=== PATIENT | female | born 2000 | race Caucasian/White ===

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

== ENCOUNTER 2021-05-29 12:31 | Emergency (ER) | payer BC ==
[2021-05-29 13:18] LABS: Absolute Lymphocytes (CBC) 2.2 K/uL (0.7-4.9); Basophils % 0.5 % (0-1.3); Hematocrit 41.1 % (36.0-45.0); Lymphocytes % 42.6 % (15.3-44.8); MPV 6.8 fL (7.6-11.3); RBC Red Blood Cell Count 4.53 M/uL (3.86-4.86)
[2021-05-29 13:21] LABS: Protime INR 1.01
[2021-05-29 13:35] LABS: ALT/SGPT 20 U/L (12-78); AST/SGOT 14 U/L (15-37); Albumin 3.5 g/dL (3.4-5.0); Alkaline Phosphatase 64 U/L (45-117); BUN Blood Urea Nitrogen 9 mg/dL (7-18); Bicarbonate 24 mmol/L (21-32); Bilirubin Direct 0.2 mg/dL (0-0.2); Bilirubin Total 1.1 mg/dL (0.2-1.0); Glucose Level 91 mg/dL (74-106); Magnesium 2.1 mg/dL (1.8-2.4); NT PRO-BNP 15 pg/mL (<125); Potassium 3.8 mmol/L (3.5-5.1); Protein, Total 7.8 g/dL (6.4-8.2); Sodium Level 138 mmol/L (136-145); Troponin (Emerg Dept Use Only) < 0.02 ng/mL (0.0-0.045)
--- NOTE | 2021-05-29 13:40 | RAD REPORT ---
EXAM DESCRIPTION: RAD - Chest Single View - 05/29/2021 1:16 pm CLINICAL HISTORY: palpitation COMPARISON: August 2019 TECHNIQUE: AP portable chest image was obtained 05/29/2021 1:16 pm . FINDINGS: Lungs are clear. Heart and vasculature are normal. No measurable pleural effusion and no p neumothorax. No acute bony abnormality seen. No acute aortic findings suspected. IMPRESSION: No acute cardiopulmonary process. No significant change from comparison study.
--- NOTE | 2021-05-29 14:28 | EDPHYS ---
Physician Documentation [facility] Name: Lois Espitia Age: 20 yrs Sex: Female : 2000 Arrival Date: 05/29/2021 Time: 12:32 Bed 8 Private MD: ED Physician Jacqueline Briseno HPI: 05/29 14:02 This 20 yrs old Female presents to ER via Ambulatory with complaints of Palpitations - ma2 wpw syndrome. 14:02 The patient presents with a history of heart racing. Onset: The symptoms/episode ma2 began/occurred gradually, 2 hour(s) ago. Associated signs and symptoms: Pertinent negatives: anxiety, chest pain, cough, fever, nausea, SOB, syncope, near-syncope, unusual stressors, vertigo. Severity of symptoms: At their worst the symptoms were very mild in the emergency department the symptoms have resolved. The patient has experienced similar episodes in the past. 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 - Social history:: Smoking status: Patient denies any tobacco usage or history of. - Family history:: not pertinent. ROS: 14:02 Constitutional: Negative for fever, chills, and weight loss. ma2 14:02 All other systems are negative. Exam: 14:02 Constitutional: This is a well developed, well nourished patient who is awake, alert, ma2 and in no acute distress. Head/Face: Normocephalic, atraumatic. Eyes: Pupils equal round and reactive to light, extra-ocular motions intact. Lids and lashes normal. Conjunctiva and sclera are non-icteric and not injected. Cornea within normal limits. Periorbital areas with no swelling, redness, or edema. ENT: Nares patent. No nasal discharge, no septal abnormalities noted. Tympanic membranes are normal and external auditory canals are clear. Oropharynx with no redness, swelling, or masses, exudates, or evidence of obstruction, uvula midline. Mucous membranes moist. Neck: Trachea midline, no thyromegaly or masses palpated, and no cervical lymphadenopathy. Supple, full range of motion without nuchal rigidity, or vertebral point tenderness. No Meningismus. Chest/axilla: Normal chest wall appearance and motion. Nontender with no deformity. No lesions are appreciated. Cardiovascular: Regular rate and rhythm with a normal S1 and S2. No gallops, murmurs, or rubs. Normal PMI, no JVD. No pulse deficits. Respiratory: Lungs have equal breath sounds bilaterally, clear to auscultation and percussion. No rales, rhonchi or wheezes noted. No increased work of breathing, no retractions or nasal flaring. Abdomen/GI: Soft, non-tender, with normal bowel sounds. No distension or tympany. No guarding or rebound. No evidence of tenderness throughout. Back: No spinal tenderness. No costovertebral tenderness. Full range of motion. Skin: Warm, dry with normal turgor. Normal color with no rashes, no lesions, and no evidence of cellulitis. MS/ Extremity: Pulses equal, no cyanosis. Neurovascular intact. Full, normal range of motion. Neuro: Awake and alert, GCS 15, oriented to person, place, time, and situation. Cranial nerves II-XII grossly intact. Motor strength 5/5 in all extremities. Sensory grossly intact. Cerebellar exam normal. Normal gait. Vital Signs: 12:49 BP 116 / 69; Pulse 76; Resp 16; Temp 99; Pulse Ox 98.2% ; Weight 68.04 kg; Height 5 ft. vg1 3 in. (160.02 cm); Pain 2/10; 13:32 BP 97 / 70; Pulse 79; Resp 16; Pulse Ox 100% ; bp 14:37 BP 102 / 66; Pulse 77; Resp 17; Pulse Ox 100% ; Pain 0/10; jh6 12:49 Body Mass Index 26.57 (68.04 kg, 160.02 cm) vg1 MDM: 12:59 Patient medically screened. ma2 14:02 LEONARDO Risk Score: Not Applicable. Differential diagnosis: arrythmia, dehydration, stress ma2 disorder. 14:27 Data reviewed: vital signs, nurses notes. Counseling: I had a detailed discussion with ma2 the patient and/or guardian regarding: the historical points, exam findings, and any diagnostic results supporting the discharge/admit diagnosis, the presence of at least one elevated blood pressure reading (>120/80) during this emergency department visit, the need for outpatient follow up. Response to treatment: the patient's symptoms have markedly improved after treatment, the patient's symptoms have resolved after treatment. 05/29 13:00 Order name: Basic Metabolic Panel [facility] 05/29 13:00 Order name: CBC with Diff; Complete Time: 14:03 al2 05/29 13:00 Order name: LFT's [facility] 05/29 13:00 Order name: Magnesium; Complete Time: 14:03 al2 05/29 13:00 Order name: NT PRO-BNP; Complete Time: 14:03 al2 05/29 13:00 Order name: PT-INR; Complete Time: 14:03 al2 05/29 13:00 Order name: Troponin (emerg Dept Use Only); Complete Time: 14:03 al2 05/29 13:00 Order name: XRAY Chest (1 view); Complete Time: 14:03 al2 05/29 13:00 Order name: EKG; Complete Time: 13:01 al2 05/29 13:00 Order name: Cardiac monitoring; Complete Time: 13:03 al2 05/29 13:00 Order name: EKG - Nurse/Tech; Complete Time: 13:03 al2 05/29 13:00 Order name: IV Saline Lock; Complete Time: 13:28 al2 05/29 13:00 Order name: Basic Metabolic Panel; Complete Time: 14:03 [facility] 05/29 13:01 Order name: Liver (Hepatic) Function; Complete Time: 14:03 [facility] 05/29 13:00 Order name: Labs collected and sent; Complete Time: 13:28 al2 05/29 13:00 Order name: O2 Per Protocol; Complete Time: 13:03 al2 05/29 13:00 Order name: O2 Sat Monitoring; Complete Time: 13:04 ma2 Administered Medications: No medications were administered Disposition Summary: 05/29/21 14:27 Discharge Ordered Location: Home ma2 Condition: Stable ma2 Diagnosis - Palpitations ma2 Followup: ma2 - With: Private Physician - When: Tomorrow - Reason: If symptoms return, Continuance of care Discharge Instructions: - Discharge Summary Sheet al2 - Palpitations ma2 Forms: - Medication Reconciliation Form ma2 - Thank You Letter ma2 - Antibiotic Education ma2 - Prescription Opioid Use ma2 Signatures: Dispatcher [employer] EDJacqueline Pena MD MD ma2 Annika Combs RN RN vg1
--- NOTE | 2021-05-29 14:28 | ER ---
Nurse's Notes [facility] Name: Lois Espitia Age: 20 yrs Sex: Female : 2000 Arrival Date: 05/29/2021 Time: 12:32 Bed 8 Private MD: Diagnosis: Palpitations Presentation: 05/29 12:49 Chief complaint: Patient states: 'I have jaleel parkinson white syndrome and I woke up vg1 feeling palpitations, SOB and my extremities have a burning sensation". states chest pain. Denies NV. Coronavirus screen: Vaccine status: Patient reports receiving the 2nd dose of the covid vaccine. Client denies travel out of the [place] in the last 14 days. Ebola Screen: Patient negative for fever greater than or equal to 101.5 degrees Fahrenheit, and additional compatible Ebola Virus Disease symptoms. Initial Sepsis Screen: Does the patient meet any 2 criteria? No. Patient's initial sepsis screen is negative. Does the patient have a suspected source of infection? No. Patient's initial sepsis screen is negative. Risk Assessment: Do you want to hurt yourself or someone else? Patient reports no desire to harm self or others. Onset of symptoms was May 29, 2021. 12:49 Method Of Arrival: Ambulatory vg1 12:49 Acuity: CHANNING 3 vg1 Triage Assessment: 12:51 General: Appears in no apparent distress. uncomfortable, Behavior is calm, cooperative. vg1 Pain: Complains of pain in chest Pain currently is 2 out of 10 on a pain scale. 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 - Social history:: Smoking status: Patient denies any tobacco usage or history of. - Family history:: not pertinent. Screenin:55 Abuse screen: Denies threats or abuse. Denies injuries from another. Nutritional bp screening: No deficits noted. Tuberculosis screening: No symptoms or risk factors identified. Fall Risk None identified. Assessment: 12:55 General: SEE TRIAGE NOTE. bp 13:32 Reassessment: No changes from previously documented assessment. Patient and/or family bp updated on plan of care and expected duration. Pain level reassessed. PT STATES S/S RESOLVED. Vital Signs: 12:49 BP 116 / 69; Pulse 76; Resp 16; Temp 99; Pulse Ox 98.2% ; Weight 68.04 kg; Height 5 ft. vg1 3 in. (160.02 cm); Pain 2/10; 13:32 BP 97 / 70; Pulse 79; Resp 16; Pulse Ox 100% ; bp 14:37 BP 102 / 66; Pulse 77; Resp 17; Pulse Ox 100% ; Pain 0/10; jh6 12:49 Body Mass Index 26.57 (68.04 kg, 160.02 cm) vg1 ED Course: 12:32 Patient arrived in ED. as 12:51 Triage completed. vg1 12:51 Arm band placed on. vg1 12:55 Patient has correct armband on for positive identification. Bed in low position. Call bp light in reach. Side rails up X2. 12:59 Jacqueline Briseno MD is Attending Physician. ma2 13:03 Ronald Mcmillan, RN is Primary Nurse. bp 13:10 Initial lab(s) drawn, by ms, sent to lab. Inserted saline lock: 20 gauge in right dh3 antecubital area, using aseptic technique. Blood collected. 13:16 XRAY Chest (1 view) In Process Unspecified. EDMS 13:28 LFT's Sent. bp 13:28 Basic Metabolic Panel Sent. bp 14:37 No provider procedures requiring assistance completed. jh6 14:38 IV discontinued, intact, bleeding controlled, No redness/swelling at site. Pressure 6 dressing applied. Administered Medications: No medications were administered Outcome: 14:27 Discharge ordered by . pr2 14:37 Discharged to home ambulatory. jh6 14:37 Condition: good 14:37 Discharge instructions given to patient, Instructed on discharge instructions, follow up and referral plans. Demonstrated understanding of instructions, follow-up care. 14:45 Patient left the ED. 6 Signatures: Dispatcher [employer] EDMS Lachelle Joseph Deanna [facility] Ronald Mcmillan, RN RN bp Jacqueline Briseno MD MD ma2 Garcia, Annika, RN RN vg1 Jenny Liz RN RN jh6 Corrections: (The following items were deleted from the chart) 12:53 12:49 Chief complaint: Patient states: 'I have jaleel parkinson white syndrome and I vg1 woke up feeling palpitations, SOB and my extremities have a burning sensation". Denies NV. vg1
[2021-05-29 14:57] VITALS: TEMP 99
[2021-05-29 14:59] VITALS: O2SAT 100
[2021-05-29 15:00] VITALS: BP 102/66
== END 2021-05-29 14:45 | disposition home or self-care (01) ==
LOC: ER 12:31
DX: R00.2 Palpitations (principal); I45.6 Pre-excitation syndrome; Z91.048 Other nonmedicinal substance allergy status
CPT/HCPCS: 36415; 71045; 80048; 80076; 83735; 83880; 84484; 85025; 85610; 93005; 99283

== ENCOUNTER 2023-12-08 11:51 | Emergency (ER) | payer BC ==
[2023-12-08 12:40] LABS: Specific Gravity < 1.005 (1.005-1.030)
[2023-12-08 12:43] LABS: Specific Gravity < 1.005 (1.005-1.030); Sqamous Epithelial None Seen /HPF (None Seen); Urine Bacteria <20 /HPF (<20); Urine Bilirubin NEGATIVE (Negative); Urine Blood Negative (Negative); Urine Clarity Turbid (Clear); Urine Color Colorless (Yellow); Urine Culture Reflex Order NOT NEEDED; Urine Glucose NEGATIVE (Negative); Urine Ketones NEGATIVE (Negative); Urine Micro Reflex YN NO BILL MICROSCOPIC; Urine Nitrite NEGATIVE (Negative); Urine Protein NEGATIVE (Negative); Urine RBC <5 /HPF (None Seen); Urine Urobilinogen Normal (Normal); Urine WBC None Seen /HPF (<5)
--- NOTE | 2023-12-08 13:25 | RAD REPORT ---
EXAM DESCRIPTION: RAD - Abdomen 1 View (KUB) - 12/08/2023 12:47 pm CLINICAL HISTORY: CONSTIPATION COMPARISON: No comparisons TECHNIQUE: Single AP view of the abdomen. FINDINGS: Nonobstructive bowel gas pattern. No air-fluid levels, free air, or pneumatosis. Moderate 2 large stool burden in the rectal bulb. Mild stool burden throughout the remainder of the c olon. Status post cholecystectomy. No suspicious calcifications. No significant bony abnormality. IMPRESSION: Moderate to large stool burden in the rectal bulb.
[2023-12-08] MEDS ORDERED: FLEET ENEMA ADULT PR ONE (14:15)
--- NOTE | 2023-12-08 14:52 | ER ---
Nurse's Notes [facility] Name: Lois Espitia Age: 23 yrs Sex: Female : 2000 Arrival Date: 12/08/2023 Time: 11:51 Bed 7 Private MD: Diagnosis: Constipation Presentation: 12/07 12:02 Chief complaint: Patient states: HAD RECTAL PROLAPSE THIS AM FIRST TIME HAS EVER db HAPPENED WITH STRAINING. HX OF CONSTIPATION STATES WORRIED WILL HAPPEN AGAIN. HAS RECTAL PAIN. STATES WAS UNABLE TO HAVE A BOWEL MOVEMENT. Coronavirus screen: Client denies travel out of the [place] in the last 14 days. At this time, the client does not indicate any symptoms associated with coronavirus-19. Ebola Screen: Patient negative for fever greater than or equal to 101.5 degrees Fahrenheit, and additional compatible Ebola Virus Disease symptoms Patient denies exposure to infectious person. Patient denies travel to an Ebola-affected area in the 21 days before illness onset. No symptoms or risks identified at this time. Initial Sepsis Screen: Does the patient meet any 2 criteria? No. Patient's initial sepsis screen is negative. Does the patient have a suspected source of infection? No. Patient's initial sepsis screen is negative. Risk Assessment: Do you want to hurt yourself or someone else? Patient reports no desire to harm self or others. Onset of symptoms was December 08, 2023. 12:02 Method Of Arrival: Ambulatory db 12:02 Acuity: CHANNING 3 db Triage Assessment: 12:03 General: Appears in no apparent distress. uncomfortable, Behavior is calm, cooperative. db Pain: Complains of pain in buttocks. Neuro: Level of Consciousness is awake, alert, obeys commands, Oriented to person, place, time, situation. Respiratory: Airway is patent Respiratory effort is even, unlabored, Respiratory pattern is regular, symmetrical. GI: Reports RECTAL PAIN. 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 - Infectious Disease History:: Denies. - Social history:: Smoking status: Reported history of juuling and/or vaping. Screenin:25 [facility] ED Fall Risk Assessment (Adult) History of falling in the last 3 months, le1 including since admission No falls in past 3 months (0 pts) Confusion or Disorientation No (0 pts) Intoxicated or Sedated No (0 pts) Impaired Gait No (0 pts) Mobility Assist Device Used No (0 pt) Altered Elimination No (0 pt) Score/Fall Risk Level 0 - 2 = Low Risk. Abuse screen: Denies threats or abuse. Nutritional screening: No deficits noted. Tuberculosis screening: No symptoms or risk factors identified. Assessment: 12:20 General: Appears in no apparent distress. comfortable, Behavior is calm, cooperative. le1 Pain: Complains of pain in abdomen Pain currently is 1.5 out of 10 on a pain scale. Quality of pain is described as Pressure Pain began 2-3 months Is continuous, Aggravated by straining. Neuro: No deficits noted. Larsen Agitation-Sedation Scale (RASS): 0 - Alert and Calm. Cardiovascular: No deficits noted. Respiratory: No deficits noted. Breath sounds are clear bilaterally. GI: No deficits noted. Bowel sounds present X 4 quads. : Reports inability to void. Vital Signs: 12:02 BP 135 / 88; Pulse 73; Resp 18; Temp 98.4; Pulse Ox 99% ; Weight 70.31 kg; Height 5 ft. db 3 in. ; 12:24 BP 129 / 82 LA Supine (auto/reg); Pulse 70 MON; Resp 18 S; Pulse Ox 98% on R/A; le1 13:16 BP 108 / 77 LA Supine (auto/reg); Pulse 66 MON; Resp 16 S; Pulse Ox 98% on R/A; le1 15:02 BP 119 / 80 LA Supine (auto/reg); Pulse 69 MON; Resp 16 S; Temp 98.4(O); Pulse Ox 98% le1 on R/A; 12:02 Body Mass Index 27.46 (70.31 kg, 160.02 cm) db ED Course: 11:57 Patient arrived in ED. mg5 12:03 Triage completed. db 12:04 Arm band placed on. EKG completed in triage. Results shown to MD. db 12:11 Oscar Tang RN is Primary Nurse. le1 12:16 Maribel Calderon PA-C is PHCP. sb4 12:16 Tyrone Trevino MD is Attending Physician. sb4 12:25 Patient has correct armband on for positive identification. Bed in low position. Call le1 light in reach. Side rails up X 1. Adult w/ patient. Provided Education on: Press call button to get help from Nurse. 12:43 Urine collected: clean catch specimen, clear. le1 12:48 Abdomen 1 View (KUB) XRAY In Process Unspecified. EDMS 15:02 No provider procedures requiring assistance completed. Patient did not have IV access le1 during this emergency room visit. Administered Medications: 14:18 Drug: Fleet Enema MS 133 ml MS once; may repeat once Route: MS; mb9 15:04 Follow up: Response: No adverse reaction; Other; Pt states she needs to go home to le1 finish relieving herself Medication: 12:26 VIS not applicable for this client. le1 Outcome: 14:51 Discharge ordered by MD. sb4 15:03 Discharged to home ambulatory, le1 15:03 Condition: improved 15:03 Discharge instructions given to patient, family, Instructed on discharge instructions, follow up and referral plans. Demonstrated understanding of instructions, follow-up care, 15:03 Patient left the ED. le1 Signatures: Dispatcher [employer] EDMS Nadiya Fu RN RN db Maribel Calderon PA-C PA-C sb4 Mary Bernal RN RN mbCindi Ness mg5 Oscar Tang RN RN le1 Corrections: (The following items were deleted from the chart) 12:04 12:02 Chief complaint: Patient states: HAD RECTAL PROLAPSE THIS AM FIRST TIME HAS EVER db HAPPENED WITH STRAINING. HX OF CONSTIPATION STATES WORRIED WILL HAPPEN AGAIN. HAS RECTAL PAIN db
--- NOTE | 2023-12-08 14:52 | EDPHYS ---
Physician Documentation [facility] Name: Lois Espitia Age: 23 yrs Sex: Female : 2000 Arrival Date: 12/08/2023 Time: 11:51 Bed 7 Private MD: ED Physician Tyrone Trevino HPI: 12/07 12:38 This 23 yrs old Female presents to ER via Ambulatory with complaints of Rectal Pain. sb4 12:38 Patient states that she has been constipated for the past few months and straining sb4 every time she has had a bowel movement but has not taken any stool softeners until this morning. States that this morning when she had a bowel movement she was straining moderately and caused her rectum to prolapse. States that it has since retracted and improved. She is just scared to have another BM and is having some abdominal cramping as well as urinary frequency. 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 - Infectious Disease History:: Denies. - Social history:: Smoking status: Reported history of juuling and/or vaping. ROS: 12:38 Constitutional: Negative for fever, chills, and weight loss, sb4 12:38 Abdomen/GI: Positive for abdominal cramps, rectal pain, 12:38 : Positive for urinary frequency, 12:38 All other systems are negative, Exam: 12:38 Constitutional: This is a well developed, well nourished patient who is awake, alert, sb4 and in no acute distress. Head/Face: Normocephalic, atraumatic. Eyes: Extra-ocular motions intact. Periorbital areas with no swelling, redness, or edema. ENT: Mucous membranes moist. Cardiovascular: Regular rate and rhythm with a normal S1 and S2. Respiratory: Lungs have equal breath sounds bilaterally, clear to auscultation and percussion. No rales, rhonchi or wheezes noted. No increased work of breathing, no retractions or nasal flaring. Abdomen/GI: Soft, non-tender, no distension. Skin: Warm, dry with normal turgor. Normal color with no rashes, no lesions, and no evidence of cellulitis. MS/ Extremity: Pulses equal, no cyanosis. Neurovascular intact. Full, normal range of motion. Vital Signs: 12:02 BP 135 / 88; Pulse 73; Resp 18; Temp 98.4; Pulse Ox 99% ; Weight 70.31 kg; Height 5 ft. db 3 in. ; 12:24 BP 129 / 82 LA Supine (auto/reg); Pulse 70 MON; Resp 18 S; Pulse Ox 98% on R/A; le1 13:16 BP 108 / 77 LA Supine (auto/reg); Pulse 66 MON; Resp 16 S; Pulse Ox 98% on R/A; le1 15:02 BP 119 / 80 LA Supine (auto/reg); Pulse 69 MON; Resp 16 S; Temp 98.4(O); Pulse Ox 98% le1 on R/A; 12:02 Body Mass Index 27.46 (70.31 kg, 160.02 cm) db MDM: 12:16 Patient medically screened. sb4 14:18 Data reviewed: vital signs, nurses notes, lab test result(s), radiologic studies, and sb4 as a result, I will discharge patient. Counseling: I had a detailed discussion with the patient and/or guardian regarding the historical points, exam findings, and any diagnostic results supporting the discharge/admit diagnosis, lab results, radiology results, to return to the emergency department if symptoms worsen or persist or if there are any questions or concerns that arise at home. 12/07 12:28 Order name: UAM; Complete Time: 12:43 sb4 12/07 12:28 Order name: Test, Urine; Complete Time: 12:42 sb4 12/07 12:28 Order name: Abdomen 1 View (KUB) XRAY; Complete Time: 13:25 sb4 Administered Medications: 14:18 Drug: Fleet Enema NV 133 ml NV once; may repeat once Route: NV; mb9 15:04 Follow up: Response: No adverse reaction; Other; Pt states she needs to go home to le finish relieving herself Disposition: 15:55 Co-signature as Attending Physician, Tyrone Trevino MD I reviewed the patient's care rt provided by the Advanced Practice Provider and agree with the diagnosis and treatment plan. Disposition Summary: 12/08/23 14:51 Discharge Ordered Notes: Location: Home sb4 Problem: new sb4 Symptoms: have improved sb4 Condition: Stable sb4 Diagnosis - Constipation sb4 Followup: sb4 - With: Private Physician - When: As needed - Reason: Recheck today's complaints, Re-evaluation by your physician Discharge Instructions: - Discharge Summary Sheet sb4 - Constipation, Adult, [id number] sb4 - Rectal Prolapse, Adult sb4 Forms: - Patient Portal Instructions sb4 - Leadership Thank You Letter sb4 Signatures: Dispatcher [employer] Nadiya Pike, RN RN Maribel Ray, PA-C PA-C sb4 Mary Bernal RN RN mb9 Tyrone Trevino MD MD rt Oscar Tang RN RN le1
[2023-12-08 15:24] VITALS: BP 119/80; TEMP 98.4; O2SAT 98
== END 2023-12-08 15:03 | disposition home or self-care (01) ==
LOC: ER 11:51
DX: K59.00 Constipation, unspecified (principal)
CPT/HCPCS: 74018; 81001; 81025; 99284